=== PATIENT | female | born 1970 | race Hispanic/Latino ===

== ENCOUNTER 2020-09-27 16:59 | Emergency (ER) | payer OTHER ==
[~2020-09-27] VITALS: Ht 149.9 cm; Wt 73.0 kg
[2020-09-27] MEDS ORDERED: KEFLEX500 M1 PO (17:46)
[2020-09-27 17:50] VITALS: BP 111/65
== END 2020-09-27 17:50 | disposition home or self-care (01) | DRG 605 ==
LOC: ED 16:59
PROC: 0HQDXZZ Repair Right Lower Arm Skin, External Approach (ICD-10-PCS; principal; 2020-09-27)
DX: S51.811A Laceration without foreign body of right forearm, initial encounter (principal); V92.03XA Drowning and submersion due to fall off other powered watercraft, initial encounter; Y92.828 Other wilderness area as the place of occurrence of the external cause